=== PATIENT | female | born 1985 | race Two or more races ===

== ENCOUNTER 2021-08-02 00:20 | Emergency (ER) | payer OTHER ==
[~2021-08-02] VITALS: Ht 170.2 cm; Wt 68.0 kg
[2021-08-02] MEDS ORDERED: SEPTRA (00:39)
== END 2021-08-02 04:14 | disposition home or self-care (01) ==
LOC: ER 00:20
DX: R30.0 Dysuria (principal); N39.0 Urinary tract infection, site not specified